=== PATIENT | female | born 1960 | race African-American/Black ===

== ENCOUNTER 2024-06-26 15:12 | Emergency (ER) | payer MEDICAID ==
[~2024-06-26] VITALS: Ht 165.1 cm; Wt 55.0 kg
[2024-06-26 15:15] VITALS: TEMP 98; O2SAT 96
[2024-06-26 16:17] VITALS: BP 102/66; PULSE 88; RESP 16
[2024-06-26] MEDS: METHOCARBAMOL 500MG TABLET PO ONE (16:17)
[2024-06-26] MEDS: IBUPROFEN 600MG TABLET PO ONE (16:17)
[2024-06-26] MEDS ORDERED: METH-653 MT (17:46)
[2024-06-26] MEDS ORDERED: IBUP-2029 MT (17:46)
== END 2024-06-26 18:20 | disposition home or self-care (01) ==
LOC: ER 15:12
DX: S33.5XXA Sprain of ligaments of lumbar spine, initial encounter (principal); M47.816 Spondylosis without myelopathy or radiculopathy, lumbar region; M47.817 Spondylosis without myelopathy or radiculopathy, lumbosacral region; W22.8XXA Striking against or struck by other objects, initial encounter; Y93.89 Activity, other specified; Y92.89 Other specified places as the place of occurrence of the external cause; Y99.8 Other external cause status
CPT/HCPCS: 72100; 99283